=== PATIENT | male | born 1985 | race Two or more races ===

== ENCOUNTER 2016-09-21 19:20 | Emergency (ER) | payer OTHER ==
[2016-09-21 19:40] VITALS: O2SAT 98
[2016-09-21] MEDS ORDERED: TDAP ADULT 0.5 ML INJ (BOOSTRIX) IM ONE (19:56)
--- NOTE | 2016-09-21 19:59 | EDPHY ---
H & P Time Seen by Provider: 09/21/16 19:47 HPI/ROS: CHIEF COMPLAINT: Bilateral foot and right ankle pain after falling HISTORY OF PRESENT ILLNESS: 31-year-old male otherwise healthy, no anticoagulant use, states that at noon today he was screaming on some rocks, slipped and tumbled distance of approximately 5 feet. May have briefly impacted his head. No loss of consciousness. No amnesia. No nausea or vomiting. He is able to hike himself out. His primary complaint is bilateral foot pain, right ankle pain and abrasion to his right knee with no right knee pain. He denies: Midline C-spine pain, peripheral paresthesia, weakness, numbness, facial injury, alcohol or drug use at time of incident, back pain or injury, abdominal pain injury, genitalia pain or injury. PRIMARY CARE PROVIDER: REVIEW OF SYSTEMS: A ten point review of systems was performed and is negative with the exception of the items mentioned in the HPI PAST MEDICAL/SURGICAL HISTORY: no anticoagulant use, no relevant medical/ surgical history SOCIAL HISTORY: denies alcohol use at time of incident PHYSICAL EXAM 1) GENERAL: Well-developed, well-nourished, alert and oriented. Appears to be in no acute distress. Answering questions appropriately. 2) HEAD: Normocephalic, atraumatic 3) HEENT: Pupils equal, round, reactive to light bilaterally. Negative Horners. Nasopharynx, oropharynx, clear. No deformity or angulation of nose. No septal hematoma. No rhinorrhea. No oral trauma. Ears bilaterally with normal tympanic membranes. No hemotympanum. No fluid or blood in the external auditory canal. No raccoon eyes. No [place] sign. Teeth are normally aligned with no gross malocclusion, TMJ bilaterally nontender, facial bones nontender including the zygomatic arch, maxilla mandible. 4) NECK: No cervical collar is on. Posterior cervical spine is nontender, no stepoff, no effusion. Full range of motion which does not elicit any midline cervical spine pain, no posterior midline tenderness, no step-off. Cervical collar is on.Cervical collar is removed while holding inline traction and patient is unable to completely differentiate between true midline pain versus just lateral of midline pain.Cervical collar is replaced at that point.and patient has no complaints of midline cervical pain, no effusion noted, trachea midline, no JVD. 5) LUNGS: Clear to auscultation bilaterally, no wheezes, no rhonchi, no retractions. No obvious signs of trauma. No chest wall pain. No flaring, no grunting. Moving symmetrically. No crepitus. 6) HEART: Regular rate and rhythm, 7) ABDOMEN: No guarding, no rebound, no focal tenderness, no peritoneal signs, no signs of trauma, no ecchymosis 8) MUSCULOSKELETAL: Left lower extremity: Tender to palpation left medial foot with noted ecchymosis. Ankle nontender. Compartment soft. DP PT pulses present and brisk with brisk capillary refill. Right lower extremity: Tender to palpation right medial and lateral ankle and 5th metatarsal of the foot. No visible signs of trauma. Compartments soft. DP PT pulses present and brisk with brisk capillary refill. Right medial knee 1 cm abrasion with full pain-free range of motion. Otherwise, Moving all extremities, no focal areas of tenderness, no obvious trauma. 9) BACK: No midline vertebral tenderness, no fluctuance, no step-off, no obvious trauma, no visual or palpable abnormality. 10) SKIN: 1 cm x 1 cm abrasion right medial knee 11) NEURO: Awake, alert, and oriented to person, place and time. Answers questions appropriately. There were no obvious focal neurologic abnormalities. No cerebellar dysfunction. Cranial nerves 2 through to 12 intact. Normal steady gait. Upper and lower extremities bilaterally with strength 5 / 5, reflexes 2+. DIFFERENTIAL DIAGNOSIS: [ no particular include but not limited to fracture, sprain, compartment syndrome Smoking Status: Never smoked Constitutional: Initial Vital Signs Temperature (C) 37 C 09/21/16 19:37 Heart Rate 86 09/21/16 19:37 Respiratory Rate 16 09/21/16 19:37 Blood Pressure 125/90 H 09/21/16 19:37 O2 Sat (%) 98 09/21/16 19:37 O2 Delivery Mode Room Air Allergies/Adverse Reactions: No Known Allergies Allergy (Unverified 09/21/16 19:37) Home Medications: Medication Instructions Recorded NK [No Known Home Meds] 06/03/15 MDM/Departure - MDM Diagnostics: Xray of the bilateral feet and right ankle interpreted by myself: no definitive acute osseous abnormality Procedures: Procedure: Splint A [place] boot splint was applied by ER community service technician. After application of the splint I returned and re-examined the patient. The splint was adequately immobilizing the joint and distal to the splint the patient's circulation and sensation were intact. Patient shows no signs of compartment syndrome. Was given orthopedic precautions. Medications Given: Discontinued Medications Diphtheria/Tetanus/Acell Pertussis (Boostrix) 0.5 ml IM .ONCE ONE Stop: 09/21/16 19:57 Last Admin: 09/21/16 20:07 Dose: 0.5 ml ED Course/Re-evaluation: Regarding this patient's possible brief head injury, he has negative [place] head injury decision making rules. Explained the patient I do not think that the benefits of CT imaging outweigh the risks in this patient I think is low risk for intracranial hemorrhage and/or skull fracture. He verbalized understanding acceptance of this. Will obtain peripheral musculoskeletal imaging studies as this is his primary complaint. His tetanus has been updated. - Depart Disposition: Home, Routine, Self-Care Clinical Impression: Activity, mountain climbing, rock climbing and wall climbing, Bilateral foot sprain Head injury Qualifiers: Encounter type: initial encounter Qualifier Code: (S09.90XA) Unspecified injury of head, initial encounter Abrasion, right knee, initial encounter Qualifiers: Encounter type: initial encounter Qualifier Code: (S80.211A) Abrasion, right knee, initial encounter Sprain of right ankle Qualifiers: Encounter type: initial encounter Involved ligament of ankle: unspecified ligament Qualifier Code: (S93.401A) Sprain of unspecified ligament of right ankle, initial encounter Condition: Good Instructions: Ankle Sprain (ED), Foot Sprain (ED) Additional Instructions: Return to the ER immediately if you experience discoloration, have worsening pain, numbness, tingling, or any other symptoms that concern you. If you received x-rays in the emergency department today, be advised, that ligamentous , tendon, muscular, and other non-bony injury cannot be fully ruled out. Try to keep your affected extremity elevated above the level of your chest, and keep cold packs on the affected area, for the next 48 hours. Referrals: Milan Krause MD [Medical Doctor] - 5-7 days, call for appt.
--- NOTE | 2016-09-21 21:19 | DX ---
Right Ankle, Minimum Three Views History: Trauma, pain. Fall scrambling on [place], 10 feet. Comparison: None. Findings: No acute fracture or dislocation identified. No widening of the ankle mortise. No malleolar fracture. Talar dome appears intact. Impressions: 1. No definite acute fracture. 2. Recommend additional imaging if symptoms persist, if clinically indicated.
--- NOTE | 2016-09-21 21:20 | DX ---
Left Foot, Minimum Three Views History: Trauma, pain. Fall scrambling on [place], 10 feet. Comparison: None. Findings: No acute fracture or dislocation identified. Left toes, metatarsals, and tarsal bones demon strate no definite fracture. Impressions: 1. No definite acute fracture. 2. Recommend additional imaging if symptoms persist, if clinically indicated.
--- NOTE | 2016-09-21 21:25 | DX ---
Right Foot, Minimum Three Views History: Trauma, pain.Fall scrambling on [place] 10 feet Comparison: None. Findings: No acute fracture or dislocation identified. Toes, metatarsals, and tarsal bones demonstrat e no definite fracture. Impression: 1. No definite acute fracture. 2. Recommend additional imaging if symptoms persist, if clinically indicated.
[2016-09-21 21:50] VITALS: BP 127/88; PULSE 78; RESP 20; TEMP 98.8
== END 2016-09-21 21:49 | disposition home or self-care (01) ==
DX: S93.401A Sprain of unspecified ligament of right ankle, initial encounter (principal); S93.601A Unspecified sprain of right foot, initial encounter; S93.602A Unspecified sprain of left foot, initial encounter; S09.90XA Unspecified injury of head, initial encounter; S80.211A Abrasion, right knee, initial encounter; Z23 Encounter for immunization; W18.09XA Striking against other object with subsequent fall, initial encounter; Y99.8 Other external cause status; Y93.31 Activity, mountain climbing, rock climbing and wall climbing

== ENCOUNTER → 2018-12-02 | Outpatient (CLI) | payer OTHER | LOC: BMCIMAGING 11:57 ==